=== PATIENT | male | born 1930 | race Caucasian/White ===

== ENCOUNTER 2016-11-13 09:41 | Inpatient (IN) | payer MEDICARE, OTHER ==
[~2016-11-13] VITALS: Ht 165.1 cm; Wt 68.0 kg
[~2016-11-13 09:41] MED LIST: ACET-2080 PO; ASPI-1093 PO; ATOR20TA65 PO; CARV12.530 PO; CILO50TA PO; EPINEPHrine 1:10,000 [1 MG/10 ML] SYRINGE IVP ONE; ETOMIDATE 2 MG/ML 10 ML VIAL IVP ONE; FERR324T4 PO; FURO20TA4 PO; LISI-660 PO; LORA-703 PO; RANI150T7 PO; SITA1TAB2 PO
[2016-11-13] MEDS ORDERED: AMIO200T2 PO (09:54)
[2016-11-13] MEDS ORDERED: DICL100G31 TP (09:54)
[2016-11-13] MEDS ORDERED: LEVO100T13 PO (09:54)
[2016-11-13] MEDS ORDERED: LISI-618 PO (09:54)
[2016-11-13] MEDS ORDERED: EPLE25TA10 PO (09:54)
[2016-11-13] MEDS ORDERED: CARV25TA32 PO (09:54)
[2016-11-13] MEDS ORDERED: ROPI2 PO (09:54)
[2016-11-13 10:01] LABS: GLUCOSE,POINT OF CARE 166 MG/DL (70-110)
[2016-11-13] MEDS ORDERED: FENO135C4 PO (10:08)
[2016-11-13] MEDS ORDERED: DOCU250C91 PO (10:08)
[2016-11-13 10:24] LABS: BASOPHILS % (AUTO) 0.3 % (0.0-2.0); EOSINOPHILS % (AUTO) 1.1 % (1.0-6.0); HEMATOCRIT 36.5 % (41-53); HEMOGLOBIN 12.1 g/dL (13.5-17.5); LYMPHOCYTES # (AUTO) 0.9 K/uL (1.0-4.8); LYMPHOCYTES % (AUTO) 14.5 % (22.0-44.0); MEAN CORPUSCULAR HEMOGLOBIN 29.8 pg (26.0-34.0); MEAN CORPUSCULAR VOLUME 90 fL (80-100); MONOCYTES # (AUTO) 0.5 K/uL (0.1-1.0); MONOCYTES % (AUTO) 8.3 % (2.0-9.0); NEUTROPHILS # (AUTO) 4.9 K/uL (1.8-7.7); NEUTROPHILS % (AUTO) 75.8 % (40.0-70.0); PLATELET COUNT (AUTO) 287 K/uL (150-450); RED BLOOD CELL COUNT(AUTO) 4.04 MIL/uL (4.50-5.90); RED CELL DISTRIBUTION WIDTH 15.7 % (11.5-14.5); WHITE BLOOD COUNT (AUTO) 6.5 K/uL (4.5-11.0)
[2016-11-13 10:28] LABS: ANION GAP 7 mmol/L (8-16); CALCIUM, TOTAL 8.7 mg/dL (8.8-10.5); CARBON DIOXIDE 25 mmol/L (22-29); CHLORIDE 102 mmol/L (98-107); CREATININE 0.91 mg/dL (0.60-1.30); GLOMERULAR FILTR. RATE CALC > 60 mL/min (>60); SODIUM SERUM 134 mmol/L (136-145); UREA NITROGEN, BLOOD 18 mg/dL (7-18)
[2016-11-13] MEDS ORDERED: SODIUM CHLORIDE 0.9% 1,000 ML IV ONE (10:30)
[2016-11-13 10:34] LABS: ALANINE AMINOTRANSFERASE 27 U/L (12-78); ALBUMIN 3.1 g/dL (3.4-5.0); ASPARTATE AMINOTRANSFERASE 32 U/L (15-37); BILIRUBIN,TOTAL 0.3 mg/dL (0.1-1.0); TOTAL PROTEIN, SERUM 7.1 g/dL (6.4-8.2)
[2016-11-13 11:13] LABS: B-TYPE NATRIURETIC PEPTIDE 1640 pg/mL (0-100)
[2016-11-13] MEDS ORDERED: CefTRIAXone 1 GM/DEXTROSE 50 ML IV ONE (11:45)
[2016-11-13] MEDS ORDERED: FUROSEMIDE 40 MG/4 ML VIAL IVP ONE (11:45)
[2016-11-13] MEDS ORDERED: AZITHROMYCIN 500 MG/NS 250 ML IV ONE (11:45)
[2016-11-13] MEDS ORDERED: LORazepam 2 MG/ML VIAL IVP ONE ×2 (13:00→15:15)
[2016-11-13] MEDS ORDERED: 0.9% SODIUM CHLORIDE 10 ML SYRINGE IVP PRN (13:15)
[2016-11-13] MEDS ORDERED: ACETAMINOPHEN 325 MG TABLET PO PRN ×2 (13:15→14:45)
[2016-11-13] MEDS ORDERED: ONDANSETRON HCL 4 MG/2 ML VIAL IVP PRN (13:15)
[2016-11-13 13:25] LABS: GLUCOSE,POINT OF CARE 165 MG/DL (70-110)
[2016-11-13] MEDS ORDERED: IPRATROPIUM BROMIDE 0.5 MG/2.5 ML NEB SOLUTION NEB ONE (13:45)
[2016-11-13] MEDS ORDERED: ALBUTEROL SULFATE 2.5 MG/0.5 ML NEB SOLUTION NEB ONE (13:45)
[2016-11-13 13:58] LABS: ANION GAP 11 mmol/L (8-16); CALCIUM, TOTAL 8.1 mg/dL (8.8-10.5); CARBON DIOXIDE 23 mmol/L (22-29); CHLORIDE 102 mmol/L (98-107); CREATININE 1.02 mg/dL (0.60-1.30); GLOMERULAR FILTR. RATE CALC > 60 mL/min (>60); POTASSIUM 3.7 mmol/L (3.5-5.1); SODIUM SERUM 136 mmol/L (136-145); UREA NITROGEN, BLOOD 17 mg/dL (7-18)
[2016-11-13 14:04] LABS: ALANINE AMINOTRANSFERASE 27 U/L (12-78); ALBUMIN 2.9 g/dL (3.4-5.0); ASPARTATE AMINOTRANSFERASE 49 U/L (15-37); BILIRUBIN,TOTAL 0.4 mg/dL (0.1-1.0); TOTAL PROTEIN, SERUM 6.6 g/dL (6.4-8.2)
[2016-11-13 14:05] LABS: TROPONIN I 0.03 ng/mL (0.00-0.05)
[2016-11-13] MEDS ORDERED: MAGNESIUM HYDROXIDE SUSPENSION 30 ML UDCUP PO PRN (14:45)
[2016-11-13 16:05] LABS: ABG BASE EXCESS -3.8 mmol/L (-2.0-3.0); ABG HCO3 22.2 mmol/L (22.0-26.0); ABG OXYHEMOGLOBIN 93.6 % (94.0-100.0); ABG PCO2 28 mmHg (35-45); ABG PH 7.473 (7.35-7.450); TEMPERATURE, FAHRENHEIT, BG 98.4 FAHREN (96.0-98.6)
[2016-11-13 16:06] LABS: ALLEN TEST, BLOOD GAS Positive
[2016-11-13] MEDS: HEPARIN SODIUM,PORCINE 5,000 UNITS/ML VIAL SQ SCH ×2 (16:25→23:27)
[2016-11-13 19:26] VITALS: BP_SYST 114
[2016-11-13 19:36] VITALS: BP 141/81
[2016-11-13] MEDS: SIMVASTATIN 20 MG TABLET PO SCH (20:29)
[2016-11-13] MEDS: CARVEDILOL 6.25 MG TABLET PO SCH (20:29)
[2016-11-13] MEDS: DOCUSATE SODIUM 100 MG CAPSULE PO SCH (20:29)
[2016-11-13] MEDS: LORazepam 2 MG/ML VIAL IVP PRN (20:30)
[2016-11-13] MEDS: INSULIN ASPART 100 UNITS/ML SQ PRN (21:22)
[2016-11-13 22:56] LABS: GLUCOSE,POINT OF CARE 139 MG/DL (70-110)
[2016-11-13] MEDS ORDERED: 0.9% SODIUM CHLORIDE 5 ML NEB SOLUTION NEB ONE (23:35)
[2016-11-13] MEDS: ALBUTEROL SULFATE 2.5 MG/0.5 ML NEB SOLUTION NEB PRN (23:39)
[2016-11-13 23:53] VITALS: BP 137/99
[2016-11-14] MEDS: LORazepam 2 MG/ML VIAL IVP PRN ×2 (00:39→16:06)
[2016-11-14 04:12] VITALS: BP 132/82
[2016-11-14] MEDS: HEPARIN SODIUM,PORCINE 5,000 UNITS/ML VIAL SQ SCH ×2 (07:45)
[2016-11-14] MEDS: ASPIRIN 81 MG CHEWABLE TABLET PO SCH (07:45)
[2016-11-14 08:02] VITALS: BP 145/91
[2016-11-14] MEDS: MULTIVITAMINS WITH MINERALS, THERAPEUTIC TABLET PO SCH (08:31)
[2016-11-14] MEDS: FUROSEMIDE 20 MG TABLET PO SCH (08:31)
[2016-11-14] MEDS: DOCUSATE SODIUM 100 MG CAPSULE PO SCH ×2 (08:31→21:11)
[2016-11-14] MEDS: CARVEDILOL 6.25 MG TABLET PO SCH ×2 (08:31→21:11)
[2016-11-14] MEDS: PANTOPRAZOLE SODIUM 40 MG DR TABLET PO SCH (08:31)
[2016-11-14] MEDS ORDERED: SODIUM CHLORIDE 0.9% 250 ML IV ONE (11:32)
[2016-11-14] MEDS: CefTRIAXone 1 GM/DEXTROSE 50 ML IV SCH (11:47)
[2016-11-14] MEDS: INSULIN ASPART 100 UNITS/ML SQ PRN (12:02)
[2016-11-14] MEDS: AZITHROMYCIN 500 MG/NS 250 ML IV SCH (13:03)
[2016-11-14] MEDS ORDERED: SODIUM CHLORIDE 0.9% 100 ML ONE (13:30)
[2016-11-14] MEDS ORDERED: IOVERSOL 320 MG/ML 100 ML VIAL ONE (13:30)
[2016-11-14 15:26] VITALS: BP 143/85
[2016-11-14 17:31] LABS: GLUCOSE COMMENT 1 Received Meds; GLUCOSE,POINT OF CARE 146 MG/DL (70-110)
[2016-11-14 17:36] LABS: GLUCOSE,POINT OF CARE 81 MG/DL (70-110)
[2016-11-14 17:37] LABS: GLUCOSE,POINT OF CARE 110 MG/DL (70-110)
[2016-11-14 19:47] VITALS: BP 125/70
[2016-11-14] MEDS: LISINOPRIL 10 MG TABLET PO SCH (21:00)
[2016-11-14] MEDS: SIMVASTATIN 20 MG TABLET PO SCH (21:11)
[2016-11-14 23:30] VITALS: BP 133/75
[2016-11-15 04:45] VITALS: BP 145/87
[2016-11-15] MEDS: INSULIN ASPART 100 UNITS/ML SQ PRN (05:43)
[2016-11-15 07:28] VITALS: BP 114/59
[2016-11-15 07:35] LABS: BASOPHILS # (AUTO) 0.03 K/uL (0.00-0.20); BASOPHILS % (AUTO) 0.3 % (0.0-2.0); EOSINOPHILS # (AUTO) 0.07 K/uL (0.00-0.70); EOSINOPHILS % (AUTO) 0.66 % (1.0-6.0); HEMATOCRIT 33.5 % (41-53); HEMOGLOBIN 11.1 g/dL (13.5-17.5); LYMPHOCYTES # (AUTO) 0.7 K/uL (1.0-4.8); LYMPHOCYTES % (AUTO) 6.7 % (22.0-44.0); MEAN CORPUSCULAR HEMOGLOBIN 29.8 pg (26.0-34.0); MEAN CORPUSCULAR HGB CONC 33.1 G/dL (31.0-37.0); MEAN CORPUSCULAR VOLUME 90 fL (80-100); MONOCYTES # (AUTO) 0.8 K/uL (0.1-1.0); MONOCYTES % (AUTO) 7.5 % (2.0-9.0); NEUTROPHILS # (AUTO) 8.4 K/uL (1.8-7.7); NEUTROPHILS % (AUTO) 84.8 % (40.0-70.0); PLATELET COUNT (AUTO) 279 K/uL (150-450); RED BLOOD CELL COUNT(AUTO) 3.72 MIL/uL (4.50-5.90); RED CELL DISTRIBUTION WIDTH 16.2 % (11.5-14.5); WHITE BLOOD COUNT (AUTO) 9.9 K/uL (4.5-11.0)
[2016-11-15 07:52] LABS: ALANINE AMINOTRANSFERASE 105 U/L (12-78); ALBUMIN 2.4 g/dL (3.4-5.0); ANION GAP 10 mmol/L (8-16); ASPARTATE AMINOTRANSFERASE 117 U/L (15-37); BILIRUBIN,TOTAL 0.4 mg/dL (0.1-1.0); CALCIUM, TOTAL 8.1 mg/dL (8.8-10.5); CARBON DIOXIDE 27 mmol/L (22-29); CHLORIDE 105 mmol/L (98-107); CREATININE 0.98 mg/dL (0.60-1.30); GLOMERULAR FILTR. RATE CALC > 60 mL/min (>60); POTASSIUM 3.5 mmol/L (3.5-5.1); SODIUM SERUM 142 mmol/L (136-145); TOTAL PROTEIN, SERUM 6.1 g/dL (6.4-8.2); UREA NITROGEN, BLOOD 19 mg/dL (7-18)
[2016-11-15] MEDS: PANTOPRAZOLE SODIUM 40 MG DR TABLET PO SCH (09:00)
[2016-11-15] MEDS: DOCUSATE SODIUM 100 MG CAPSULE PO SCH ×2 (09:00→21:04)
[2016-11-15] MEDS: ASPIRIN 81 MG CHEWABLE TABLET PO SCH (09:00)
[2016-11-15] MEDS: FUROSEMIDE 20 MG TABLET PO SCH (09:38)
[2016-11-15] MEDS: CARVEDILOL 6.25 MG TABLET PO SCH ×2 (09:39→21:04)
[2016-11-15] MEDS: MULTIVITAMINS WITH MINERALS, THERAPEUTIC TABLET PO SCH (09:40)
[2016-11-15 11:19] VITALS: BP 124/62
[2016-11-15] MEDS: CefTRIAXone 1 GM/DEXTROSE 50 ML IV SCH (12:00)
[2016-11-15 12:31] LABS: INR 1.4 (0.9-1.1)
[2016-11-15] MEDS: AZITHROMYCIN 500 MG/NS 250 ML IV SCH (13:00)
[2016-11-15 15:29] VITALS: BP 145/82
[2016-11-15 19:18] VITALS: BP 138/94
[2016-11-15] MEDS: SIMVASTATIN 20 MG TABLET PO SCH (21:04)
[2016-11-15] MEDS: LISINOPRIL 10 MG TABLET PO SCH (21:04)
[2016-11-15] MEDS ORDERED: 0.9% SODIUM CHLORIDE 10 ML SYRINGE IVP PRN (22:30)
[2016-11-15] MEDS: LORazepam 2 MG/ML VIAL IVP PRN (23:11)
[2016-11-16 04:52] VITALS: BP 137/78
[2016-11-16] MEDS: INSULIN ASPART 100 UNITS/ML SQ PRN ×4 (05:38→22:02)
[2016-11-16 06:19] LABS: BASOPHILS % (AUTO) 0.1 % (0.0-2.0); EOSINOPHILS % (AUTO) 0.3 % (1.0-6.0); HEMOGLOBIN 11.9 g/dL (13.5-17.5); LYMPHOCYTES # (AUTO) 0.7 K/uL (1.0-4.8); LYMPHOCYTES % (AUTO) 6.2 % (22.0-44.0); MEAN CORPUSCULAR HEMOGLOBIN 29.4 pg (26.0-34.0); MEAN CORPUSCULAR HGB CONC 32.3 G/dL (31.0-37.0); MEAN CORPUSCULAR VOLUME 91 fL (80-100); MONOCYTES # (AUTO) 0.7 K/uL (0.1-1.0); MONOCYTES % (AUTO) 6.6 % (2.0-9.0); NEUTROPHILS # (AUTO) 9.5 K/uL (1.8-7.7); PLATELET COUNT (AUTO) 261 K/uL (150-450); RED BLOOD CELL COUNT(AUTO) 4.05 MIL/uL (4.50-5.90); WHITE BLOOD COUNT (AUTO) 10.9 K/uL (4.5-11.0)
[2016-11-16 06:39] LABS: ALANINE AMINOTRANSFERASE 76 U/L (12-78); ALBUMIN 2.4 g/dL (3.4-5.0); ANION GAP 11 mmol/L (8-16); ASPARTATE AMINOTRANSFERASE 70 U/L (15-37); BILIRUBIN,TOTAL 0.6 mg/dL (0.1-1.0); CALCIUM, TOTAL 8.5 mg/dL (8.8-10.5); CARBON DIOXIDE 24 mmol/L (22-29); CHLORIDE 103 mmol/L (98-107); CREATININE 1.08 mg/dL (0.60-1.30); GLOMERULAR FILTR. RATE CALC > 60 mL/min (>60); POTASSIUM 3.8 mmol/L (3.5-5.1); SODIUM SERUM 138 mmol/L (136-145); UREA NITROGEN, BLOOD 30 mg/dL (7-18)
[2016-11-16 06:51] LABS: NEUTROPHILS % (AUTO) 86.8 % (40.0-70.0)
[2016-11-16 07:17] VITALS: BP 121/71
[2016-11-16 09:09] LABS: RBC MORPHOLOGY COMMENT NORMAL RBC MORPH
[2016-11-16] MEDS: DOCUSATE SODIUM 100 MG CAPSULE PO SCH ×3 (09:15→21:49)
[2016-11-16] MEDS: CARVEDILOL 6.25 MG TABLET PO SCH ×2 (09:16→21:48)
[2016-11-16] MEDS: PANTOPRAZOLE SODIUM 40 MG DR TABLET PO SCH (09:16)
[2016-11-16] MEDS: ASPIRIN 81 MG CHEWABLE TABLET PO SCH (09:16)
[2016-11-16] MEDS: MULTIVITAMINS WITH MINERALS, THERAPEUTIC TABLET PO SCH (09:17)
[2016-11-16] MEDS: FUROSEMIDE 40 MG/4 ML VIAL IVP SCH ×2 (10:00→21:49)
[2016-11-16 11:34] VITALS: BP 119/68
[2016-11-16] MEDS: CefTRIAXone 1 GM/DEXTROSE 50 ML IV SCH (11:46)
[2016-11-16] MEDS ORDERED: 0.9% SODIUM CHLORIDE 5 ML NEB SOLUTION NEB ONE ×2 (11:55→14:29)
[2016-11-16] MEDS ORDERED: SODIUM CHLORIDE 3% 15 ML NEB SOLUTION NEB ONE (11:55)
[2016-11-16 13:37] LABS: APPEARANCE,UNSPUN,BODY FLUID HAZY (CLEAR); COLOR,BODY FLUID LT YELLOW (LT YELLOW)
[2016-11-16] MEDS: AZITHROMYCIN 500 MG/NS 250 ML IV SCH (13:45)
[2016-11-16] MEDS: ALBUTEROL SULFATE 2.5 MG/0.5 ML NEB SOLUTION NEB PRN (14:30)
[2016-11-16 15:04] VITALS: BP 141/86
[2016-11-16 17:00] LABS: ABG A-A DIFF O2 235.3 mmHg (10-20.0); ABG BASE EXCESS -0.9 mmol/L (-2.0-3.0); ABG HCO3 24.6 mmol/L (22.0-26.0); ABG OXYHEMOGLOBIN 96.4 % (94.0-100.0); ABG PCO2 29 mmHg (35-45); ABG PH 7.509 (7.35-7.450); TEMPERATURE, FAHRENHEIT, BG 98.5 FAHREN (96.0-98.6)
[2016-11-16 17:01] LABS: ALLEN TEST, BLOOD GAS Positive; IPAP, BG 12 cm H2O
[2016-11-16] MEDS: LORazepam 2 MG/ML VIAL IVP PRN (19:32)
[2016-11-16 20:12] VITALS: BP 138/78
[2016-11-16] MEDS: LISINOPRIL 10 MG TABLET PO SCH (21:48)
[2016-11-16] MEDS: SIMVASTATIN 20 MG TABLET PO SCH (21:48)
[2016-11-16 23:54] VITALS: BP 115/68
[2016-11-16 23:57] LABS: GLUCOSE COMMENT 1 Received Meds; GLUCOSE,POINT OF CARE 202 MG/DL (70-110)
[2016-11-16 23:57] LABS: GLUCOSE,POINT OF CARE 192 MG/DL (70-110)
[2016-11-17] MEDS: LORazepam 2 MG/ML VIAL IVP PRN ×2 (02:32→10:44)
[2016-11-17 03:03] VITALS: BP 128/86
[2016-11-17 04:04] LABS: ABG A-A DIFF O2 258.7 mmHg (10-20.0); ABG BASE EXCESS -1.5 mmol/L (-2.0-3.0); ABG HCO3 24.1 mmol/L (22.0-26.0); ABG OXYHEMOGLOBIN 92.7 % (94.0-100.0); ABG PCO2 28 mmHg (35-45); ALLEN TEST, BLOOD GAS Positive; IPAP, BG 16 cm H2O; TEMPERATURE, FAHRENHEIT, BG 98.6 FAHREN (96.0-98.6)
[2016-11-17] MEDS ORDERED: HALOPERIDOL LACTATE 5 MG/ML VIAL IVP ONE (06:00)
[2016-11-17] MEDS: INSULIN ASPART 100 UNITS/ML SQ PRN (06:32)
[2016-11-17 06:42] LABS: EOSINOPHILS % (AUTO) 0.1 % (1.0-6.0); HEMATOCRIT 35.4 % (41-53); HEMOGLOBIN 11.4 g/dL (13.5-17.5); LYMPHOCYTES # (AUTO) 0.7 K/uL (1.0-4.8); LYMPHOCYTES % (AUTO) 6.2 % (22.0-44.0); MEAN CORPUSCULAR HEMOGLOBIN 29.2 pg (26.0-34.0); MEAN CORPUSCULAR HGB CONC 32.3 G/dL (31.0-37.0); MEAN CORPUSCULAR VOLUME 91 fL (80-100); MONOCYTES # (AUTO) 0.8 K/uL (0.1-1.0); MONOCYTES % (AUTO) 6.7 % (2.0-9.0); NEUTROPHILS # (AUTO) 10.1 K/uL (1.8-7.7); PLATELET COUNT (AUTO) 178 K/uL (150-450); RED BLOOD CELL COUNT(AUTO) 3.91 MIL/uL (4.50-5.90); RED CELL DISTRIBUTION WIDTH 16.2 % (11.5-14.5); WHITE BLOOD COUNT (AUTO) 11.6 K/uL (4.5-11.0)
[2016-11-17 06:46] LABS: RBC MORPHOLOGY COMMENT NORMAL RBC MORPH
[2016-11-17 06:56] LABS: GLUCOSE,POINT OF CARE 130 MG/DL (70-110)
[2016-11-17 06:56] LABS: GLUCOSE COMMENT 1 Received Meds; GLUCOSE,POINT OF CARE 215 MG/DL (70-110)
[2016-11-17 07:11] LABS: ALBUMIN 2.6 g/dL (3.4-5.0); BILIRUBIN,TOTAL 1.8 mg/dL (0.1-1.0); CALCIUM, TOTAL 8.4 mg/dL (8.8-10.5); CREATININE 1.35 mg/dL (0.60-1.30); MAGNESIUM 1.9 mg/dL (1.80-2.40); POTASSIUM 3.8 mmol/L (3.5-5.1); TOTAL PROTEIN, SERUM 6.1 g/dL (6.4-8.2)
[2016-11-17 07:21] LABS: GLUCOSE,POINT OF CARE 146 MG/DL (70-110)
[2016-11-17 08:30] VITALS: BP 139/80
[2016-11-17] MEDS: CARVEDILOL 6.25 MG TABLET PO SCH ×2 (09:00→21:00)
[2016-11-17] MEDS: MULTIVITAMINS WITH MINERALS, THERAPEUTIC TABLET PO SCH (09:00)
[2016-11-17] MEDS: PANTOPRAZOLE SODIUM 40 MG DR TABLET PO SCH (09:00)
[2016-11-17] MEDS: ASPIRIN 81 MG CHEWABLE TABLET PO SCH (09:00)
[2016-11-17] MEDS: DOCUSATE SODIUM 100 MG CAPSULE PO SCH ×2 (09:00→21:00)
[2016-11-17] MEDS: FUROSEMIDE 40 MG/4 ML VIAL IVP SCH ×2 (09:00→21:00)
[2016-11-17] MEDS ORDERED: HALOPERIDOL LACTATE 5 MG/ML VIAL IM PRN (11:00)
[2016-11-17] MEDS ORDERED: RAPID SEQUENCE KIT [RSI] 1 EACH KIT ONE ×2 (11:49)
[2016-11-17] MEDS ORDERED: SUCCINYLCHOLINE CHLORIDE 20 MG/ML 10 ML VIAL ONE (11:50)
[2016-11-17 12:00] VITALS: BP 129/73
[2016-11-17] MEDS ORDERED: ETOMIDATE 2 MG/ML 10 ML VIAL IVP ONE (12:12)
[2016-11-17] MEDS ORDERED: SUCCINYLCHOLINE CHLORIDE 20 MG/ML 10 ML VIAL IVP ONE (12:13)
[2016-11-17 12:15] VITALS: BP 129/73
[2016-11-17] MEDS ORDERED: PROPOFOL 1000 MG/ISO-OSM 100 ML IV ONE (12:32)
[2016-11-17] MEDS ORDERED: PROPOFOL 1000 MG/ISO-OSM 100 ML IV PRN (12:54)
[2016-11-17] MEDS ORDERED: PHENYLEPHRINE 200 MG/D5%-WATER 250 ML IV ONE (12:58)
[2016-11-17] MEDS ORDERED: SODIUM CHLORIDE 0.9% 250 ML IV ONE (13:29)
[2016-11-17] MEDS: DEXTROSE 50%-WATER 25 GM/50 ML SYRINGE IVP PRN (14:11)
[2016-11-17] MEDS: VASOPRESSIN 100 UNITS in DEXTROSE 5%-WATER 245 ML IV PRN (14:15)
[2016-11-17] MEDS: PHENYLEPHRINE 200 MG/D5%-WATER 250 ML IV PRN (14:17)
[2016-11-17] MEDS: CefTRIAXone 1 GM/DEXTROSE 50 ML IV SCH (14:30)
[2016-11-17] MEDS: AZITHROMYCIN 500 MG/NS 250 ML IV SCH (15:00)
[2016-11-17 15:25] LABS: BASOPHILS # (AUTO) 0.05 K/uL (0.00-0.20); BASOPHILS % (AUTO) 0.3 % (0.0-2.0); EOSINOPHILS # (AUTO) 0.01 K/uL (0.00-0.70); EOSINOPHILS % (AUTO) 0.06 % (1.0-6.0); HEMATOCRIT 34.3 % (41-53); HEMOGLOBIN 11.2 g/dL (13.5-17.5); LYMPHOCYTES # (AUTO) 0.7 K/uL (1.0-4.8); LYMPHOCYTES % (AUTO) 4.8 % (22.0-44.0); MEAN CORPUSCULAR HEMOGLOBIN 29.1 pg (26.0-34.0); MEAN CORPUSCULAR HGB CONC 32.6 G/dL (31.0-37.0); MEAN CORPUSCULAR VOLUME 89 fL (80-100); MONOCYTES # (AUTO) 0.7 K/uL (0.1-1.0); NEUTROPHILS # (AUTO) 12.7 K/uL (1.8-7.7); RED BLOOD CELL COUNT(AUTO) 3.84 MIL/uL (4.50-5.90); RED CELL DISTRIBUTION WIDTH 17.4 % (11.5-14.5); WHITE BLOOD COUNT (AUTO) 14.2 K/uL (4.5-11.0)
[2016-11-17 15:26] LABS: CALCIUM, TOTAL 8.4 mg/dL (8.8-10.5); CREATININE 2.26 mg/dL (0.60-1.30); POTASSIUM 4.6 mmol/L (3.5-5.1)
[2016-11-17 15:32] LABS: NEUTROPHILS % (AUTO) 89.8 % (40.0-70.0)
[2016-11-17 15:51] LABS: ALBUMIN 2.3 g/dL (3.4-5.0); BILIRUBIN,TOTAL 6.5 mg/dL (0.1-1.0); TOTAL PROTEIN, SERUM 5.4 g/dL (6.4-8.2)
[2016-11-17] MEDS ORDERED: SODIUM CHLORIDE 0.9% 500 ML IV ONE (15:59)
[2016-11-17 16:00] VITALS: BP 80/52
[2016-11-17 16:16] LABS: PLATELET COUNT (AUTO) 134 K/uL (150-450)
[2016-11-17 17:38] LABS: CREATINE KINASE MB 8.2 ng/mL (0-5)
[2016-11-17 20:00] VITALS: BP 129/55
[2016-11-17] MEDS: NOREPINEPHRINE 4 MG/D5%-WATER 250 ML IV PRN (20:19)
[2016-11-17] MEDS: SIMVASTATIN 10 MG TABLET PO SCH (21:00)
[2016-11-17 21:37] LABS: GLUCOSE COMMENT 1 Repeated; GLUCOSE,POINT OF CARE 58 MG/DL (70-110)
[2016-11-17 21:37] LABS: GLUCOSE,POINT OF CARE 103 MG/DL (70-110)
[2016-11-17 21:37] LABS: GLUCOSE,POINT OF CARE 126 MG/DL (70-110)
[2016-11-18] VITALS: BP 110/47
[2016-11-18] MEDS: PHENYLEPHRINE 200 MG/D5%-WATER 250 ML IV PRN ×3 (00:11→22:56)
[2016-11-18] MEDS: NOREPINEPHRINE 4 MG/D5%-WATER 250 ML IV PRN ×7 (00:12→22:57)
[2016-11-18 01:42] LABS: GLUCOSE,POINT OF CARE 96 MG/DL (70-110)
[2016-11-18] MEDS: DOPamine HCL 400 MG/D5%-WATER 250 ML IV PRN ×3 (03:41→22:04)
[2016-11-18 04:00] VITALS: BP 122/45
[2016-11-18 07:14] LABS: BILIRUBIN,TOTAL 7.3 mg/dL (0.1-1.0); CALCIUM, TOTAL 7.7 mg/dL (8.8-10.5); CREATININE 4.04 mg/dL (0.60-1.30); MAGNESIUM 2.6 mg/dL (1.80-2.40); POTASSIUM 5.8 mmol/L (3.5-5.1)
[2016-11-18 08:00] VITALS: BP 118/44
[2016-11-18] MEDS ORDERED: SODIUM BICARBONATE [ADULT] 8.4% 50 MEQ/50 ML SYRINGE IVP ONE (08:00)
[2016-11-18] MEDS: MULTIVITAMINS WITH MINERALS, THERAPEUTIC TABLET PO SCH (08:16)
[2016-11-18] MEDS: PANTOPRAZOLE SODIUM 40 MG DR TABLET PO SCH (08:16)
[2016-11-18] MEDS: DOCUSATE SODIUM 100 MG CAPSULE PO SCH ×2 (08:16→21:00)
[2016-11-18] MEDS: ASPIRIN 81 MG CHEWABLE TABLET PO SCH (08:16)
[2016-11-18 08:32] LABS: ABG A-A DIFF O2 455.6 mmHg (10-20.0); ABG BASE EXCESS -19.2 mmol/L (-2.0-3.0); ABG HCO3 11.2 mmol/L (22.0-26.0); ABG OXYHEMOGLOBIN 98.6 % (94.0-100.0); ABG PCO2 24 mmHg (35-45)
[2016-11-18 08:33] LABS: ABG PH 7.196 (7.35-7.450)
[2016-11-18 08:34] LABS: INSIPIRATORY PRESSURE, BG 25 cm H2O
[2016-11-18 08:36] LABS: HEMATOCRIT 37.7 % (41-53); HEMOGLOBIN 11.8 g/dL (13.5-17.5); MEAN CORPUSCULAR HGB CONC 31.2 G/dL (31.0-37.0); MEAN CORPUSCULAR VOLUME 93 fL (80-100); PLATELET COUNT (AUTO) 44 K/uL (150-450); RED BLOOD CELL COUNT(AUTO) 4.06 MIL/uL (4.50-5.90); RED CELL DISTRIBUTION WIDTH 18.8 % (11.5-14.5)
[2016-11-18 08:38] LABS: WHITE BLOOD COUNT (AUTO) 31.8 K/uL (4.5-11.0)
[2016-11-18] MEDS ORDERED: VANCOMYCIN HCL 1 GM/D5% WATER 200 ML IV PRN (09:15)
[2016-11-18] MEDS ORDERED: POTASSIUM CHLORIDE 20 MEQ in NXSTAGE RFP-402 K0/CA3 5,000 ML IRRIG PRN (09:45)
[2016-11-18 09:49] LABS: BAND NEUTROPHILS % (MANUAL) 7 % (1-5); LYMPHOCYTES % (MANUAL) 6 % (22-44); TOTAL CELLS COUNTED 100
[2016-11-18 09:50] LABS: RBC MORPHOLOGY COMMENT ABNORMAL R
[2016-11-18] MEDS ORDERED: SODIUM CHLORIDE 0.9% 250 ML IV ONE (09:52)
[2016-11-18] MEDS ORDERED: SODIUM CHLORIDE 0.45% IV SCH (10:00)
[2016-11-18] MEDS ORDERED: CALCIUM GLUCONATE IV SCH (10:00)
[2016-11-18] MEDS ORDERED: SODIUM BICARBONATE IV SCH (10:00)
[2016-11-18] MEDS ORDERED: PIPERACILLIN SODIUM/TAZOBACTAM 2.25 GM in DEXTROSE 5%-WATER 50 ML IV SCH (10:00)
[2016-11-18] MEDS ORDERED: SODIUM CHLORIDE 0.9% 2,000 ML IV ONE (10:05)
[2016-11-18] MEDS: SODIUM BICARBONATE IV SCH ×5 (10:44→22:30)
[2016-11-18] MEDS: CALCIUM GLUCONATE IV SCH ×5 (10:44→22:30)
[2016-11-18] MEDS: SODIUM CHLORIDE 0.45% IV SCH ×5 (10:44→22:30)
[2016-11-18] MEDS: PIPERACILLIN SODIUM/TAZOBACTAM 4.5 GM in DEXTROSE 5%-WATER 100 ML IV SCH ×2 (10:47→19:29)
[2016-11-18] MEDS ORDERED: VANCOMYCIN HCL 1.25 GM in DEXTROSE 5%-WATER 250 ML IV ONE (11:00)
[2016-11-18 12:00] VITALS: BP 112/39
[2016-11-18 16:00] VITALS: BP 115/40
[2016-11-18] MEDS: DEXTROSE 50%-WATER 25 GM/50 ML SYRINGE IVP PRN (16:12)
[2016-11-18] MEDS ORDERED: SODIUM CHLORIDE 0.9% 500 ML IV ONE (17:08)
[2016-11-18 20:42] LABS: GLUCOSE,POINT OF CARE 116 MG/DL (70-110)
[2016-11-18 20:42] LABS: GLUCOSE COMMENT 1 Received Meds; GLUCOSE,POINT OF CARE 184 MG/DL (70-110)
[2016-11-18 20:42] LABS: GLUCOSE,POINT OF CARE 141 MG/DL (70-110)
[2016-11-18 20:42] LABS: GLUCOSE COMMENT 1 Received Meds; GLUCOSE,POINT OF CARE 197 MG/DL (70-110)
[2016-11-18 20:42] LABS: GLUCOSE COMMENT 1 Received Meds; GLUCOSE,POINT OF CARE 120 MG/DL (70-110)
[2016-11-18 20:42] LABS: GLUCOSE,POINT OF CARE 214 MG/DL (70-110)
[2016-11-18] MEDS: SIMVASTATIN 10 MG TABLET PO SCH (21:00)
[2016-11-18 21:08] VITALS: BP 94/40
[2016-11-19] VITALS: BP 109/43
[2016-11-19] MEDS: DEXTROSE 50%-WATER 25 GM/50 ML SYRINGE IVP PRN ×2 (00:26→01:02)
[2016-11-19 01:06] LABS: GLUCOSE COMMENT 1 Juice/Food/D50 Given; GLUCOSE,POINT OF CARE 67 MG/DL (70-110)
[2016-11-19 01:06] LABS: GLUCOSE COMMENT 1 Juice/Food/D50 Given; GLUCOSE,POINT OF CARE 16 MG/DL (70-110)
[2016-11-19] MEDS: CALCIUM GLUCONATE IV SCH ×3 (01:12→05:08)
[2016-11-19] MEDS: SODIUM CHLORIDE 0.45% IV SCH ×3 (01:12→05:08)
[2016-11-19] MEDS: SODIUM BICARBONATE IV SCH ×3 (01:12→05:08)
[2016-11-19 02:27] LABS: GLUCOSE,POINT OF CARE 91 MG/DL (70-110)
[2016-11-19 02:27] LABS: GLUCOSE,POINT OF CARE 36 MG/DL (70-110)
[2016-11-19 02:27] LABS: GLUCOSE,POINT OF CARE 106 MG/DL (70-110)
[2016-11-19 02:27] LABS: GLUCOSE,POINT OF CARE 135 MG/DL (70-110)
[2016-11-19] MEDS: VASOPRESSIN 100 UNITS in DEXTROSE 5%-WATER 245 ML IV PRN (02:37)
[2016-11-19] MEDS: NOREPINEPHRINE 4 MG/D5%-WATER 250 ML IV PRN (02:47)
[2016-11-19] MEDS: PIPERACILLIN SODIUM/TAZOBACTAM 4.5 GM in DEXTROSE 5%-WATER 100 ML IV SCH (03:19)
[2016-11-19] MEDS: DOPamine HCL 400 MG/D5%-WATER 250 ML IV PRN (03:22)
[2016-11-19 04:00] VITALS: BP 88/33
[2016-11-19 06:11] LABS: GLUCOSE COMMENT 1 Juice/Food/D50 Given; GLUCOSE,POINT OF CARE 61 MG/DL (70-110); ORIG DRAW (USER) PTCARESTAF
[2016-11-19] MEDS ORDERED: SODIUM BICARBONATE [ADULT] 8.4% 50 MEQ/50 ML SYRINGE IVP ONE (06:14)
[2016-11-19] MEDS ORDERED: EPINEPHrine 1:10,000 [1 MG/10 ML] SYRINGE IVP ONE ×2 (06:14)
[2016-11-19] MEDS ORDERED: DOPamine HCL/D5W 400 MG/250 ML IV BAG IV ONE (06:14)
[2016-11-19] MEDS ORDERED: AMIODARONE HCL 50 MG/ML 3 ML VIAL IV ONE (06:14)
== END 2016-11-19 06:15 | disposition expired | DRG 871 ==
LOC: EMS 09:43 → 5S 15:54 → 5N 11-14 15:15 → ICU 11-17 07:47
PROVIDERS: ADMIT Internal Medicine; ATTEND Internal Medicine
PROC: 5A09457 Assistance with Respiratory Ventilation, 24-96 Consecutive Hours, Continuous Positive Airway Pressure (ICD-10-PCS; principal; 2016-11-14)
PROC: 0W993ZZ Drainage of Right Pleural Cavity, Percutaneous Approach (ICD-10-PCS; 2016-11-16)
PROC: 05HM33Z Insertion of Infusion Device into Right Internal Jugular Vein, Percutaneous Approach (ICD-10-PCS; 2016-11-17)
PROC: B543ZZA Ultrasonography of Right Jugular Veins, Guidance (ICD-10-PCS; 2016-11-17)
PROC: 06HM33Z Insertion of Infusion Device into Right Femoral Vein, Percutaneous Approach (ICD-10-PCS; 2016-11-17)
PROC: B54BZZA Ultrasonography of Right Lower Extremity Veins, Guidance (ICD-10-PCS; 2016-11-17)
PROC: 04HK33Z Insertion of Infusion Device into Right Femoral Artery, Percutaneous Approach (ICD-10-PCS; 2016-11-17)
PROC: 5A1945Z Respiratory Ventilation, 24-96 Consecutive Hours (ICD-10-PCS; 2016-11-17)
PROC: 0BH17EZ Insertion of Endotracheal Airway into Trachea, Via Natural or Artificial Opening (ICD-10-PCS; 2016-11-17)
PROC: 5A12012 Performance of Cardiac Output, Single, Manual (ICD-10-PCS; 2016-11-18)
DX: A41.9 Sepsis, unspecified organism (principal); I50.21 Acute systolic (congestive) heart failure; J18.9 Pneumonia, unspecified organism; I21.3 ST elevation (STEMI) myocardial infarction of unspecified site; J96.01 Acute respiratory failure with hypoxia; E43 Unspecified severe protein-calorie malnutrition; N17.0 Acute kidney failure with tubular necrosis; R04.2 Hemoptysis; I13.0 Hypertensive heart and chronic kidney disease with heart failure and stage 1 through stage 4 chronic kidney disease, or unspecified chronic kidney disease; E87.4 Mixed disorder of acid-base balance; J90 Pleural effusion, not elsewhere classified; I25.5 Ischemic cardiomyopathy; I25.10 Atherosclerotic heart disease of native coronary artery without angina pectoris; F03.90 Unspecified dementia, unspecified severity, without behavioral disturbance, psychotic disturbance, mood disturbance, and anxiety; T50.8X5A Adverse effect of diagnostic agents, initial encounter; Y92.238 Other place in hospital as the place of occurrence of the external cause; X58.XXXA Exposure to other specified factors, initial encounter; E78.5 Hyperlipidemia, unspecified; E03.9 Hypothyroidism, unspecified; I46.9 Cardiac arrest, cause unspecified; E11.22 Type 2 diabetes mellitus with diabetic chronic kidney disease; N18.9 Chronic kidney disease, unspecified; D64.9 Anemia, unspecified; R59.0 Localized enlarged lymph nodes; E87.5 Hyperkalemia; Z88.8 Allergy status to other drugs, medicaments and biological substances; Z79.899 Other long term (current) drug therapy; Z79.82 Long term (current) use of aspirin; Z82.49 Family history of ischemic heart disease and other diseases of the circulatory system; Z87.891 Personal history of nicotine dependence; Z95.1 Presence of aortocoronary bypass graft; Y93.89 Activity, other specified; Y99.8 Other external cause status; Z95.810 Presence of automatic (implantable) cardiac defibrillator; Z78.1 Physical restraint status; Z90.49 Acquired absence of other specified parts of digestive tract; Z68.24 Body mass index [BMI] 24.0-24.9, adult
CPT/HCPCS: 32555; 70450; 71260; 76942; 82465; 82805; 82945; 82962; 83615; 83735; 83986; 84145; 84157; 87015; 87040; 87070; 87081; 87101; 87205; 88108; 89051; 90947; 92950; 93005; 93306; 93308; 94003; 94640; 94660; 94799; 96361; 96365; 96366; 96367; 96375; 96376; 99285; J0171; J0282; J0330; J0456; J0610; J0696; J1265; J1630; J1940; J2060; J2370; J2543; J2704; J3370; J3480; J3490; J7030; J7040; J7050; J7060